=== PATIENT | female | born 1990 | race American Indian/Alaskan Native ===

== ENCOUNTER 2018-09-04 01:39 | Emergency (ER) | payer MEDICAID ==
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
== END 2018-09-04 04:05 | disposition home or self-care (01) ==
LOC: ED 01:39
CPT/HCPCS: 99282

== ENCOUNTER 2019-04-28 09:15 | Emergency (ER) | payer MEDICAID, OTHER ==
[2019-04-28 09:22] VITALS: BP 113/74
[2019-04-28] MEDS ORDERED: SOLU-Medrol IM ONE (10:50)
[2019-04-28] MEDS ORDERED: SOLU-Medrol IV ONE (10:50)
[2019-04-28] MEDS ORDERED: BENADRYL IV ONE (10:51)
[2019-04-28] MEDS ORDERED: NORCO 5/325 ONE (11:14)
[2019-04-28] MEDS ORDERED: NORCO 5/325 PO ONE (11:14)
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
== END 2019-04-28 13:10 | disposition home or self-care (01) ==
LOC: ED 09:15
DX: S16.1XXA Strain of muscle, fascia and tendon at neck level, initial encounter (principal); M54.5 Low back pain; M79.605 Pain in left leg; F17.200 Nicotine dependence, unspecified, uncomplicated; Z79.899 Other long term (current) drug therapy; V89.2XXA Person injured in unspecified motor-vehicle accident, traffic, initial encounter; Y93.89 Activity, other specified; Y92.488 Other paved roadways as the place of occurrence of the external cause; Y99.8 Other external cause status
CPT/HCPCS: 72040; 72070; 72100; 73590; 99283; J1200; J2930